=== PATIENT | male | born 1980 | race Caucasian/White ===

== ENCOUNTER 2017-10-11 09:00 | Outpatient (RCR) | payer BC, SELFPAY ==
--- NOTE | 2017-09-27 10:09 | [facility].PTOPWND ---
Rehab Outpt Wound Evaluation Rehab OP Wound Evaluation Start: 09/27/17 10:03 Freq: Status: Active Protocol: Document 09/27/17 10:03 KAREN (Rec: 09/27/17 10:08 KAREN [id number]) Electronically Signed By Alex Stauffer PT 09/27/17 10:03 Subjective/History History History Pt presents with c/o increasing irritation and random open sores of the right lower leg x 1-2 mos. Pt reports he has hx of CVI x 2-3 yrs with increasing edema in darrell LE. He currently reports no c/o pain or numbness in dar[place] LE and no significant PMH. 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 Stage of Lymphedema Lymphedema stages Stage I (Pitting edema, reduces w/ elevation, no fibrosis) Skin Changes Dry Skin Yes Taut, Shiny Skin Yes Wounds Yes Discoloration of Skin Yes Pain Scale Pain Scale (0-10) 0 Affected Extremities Areas Affected by Lymphedema/Edema Right Lower Extremity Left Lower Extremity Manual Lymphatic Drainage Treatment Area MLD Treatment Area Right Lower Extremity Left Lower Extremity Wound Problems/Impairments Impairments Problems/Impairmments Increased Edema Lymphedema Present Wound Care Needs Impaired Self Care/Self Management Prognosis Rehab Potential Good Clinical Impression Consistent with Diagnosis Yes Short Term Goals Number of Weeks 4 Patient to Understand Lymphedema Yes Treatment and Exercises Decrease Girth Measurments by (cm) Yes: by 5 cm Detention Attendant Goals Number of Weeks 8 Patient to be Ind w/ HEP Yes Patient to Adhere Lymphedema Precautions Yes Decrease Girth Measurments by (cm) Yes: by 15 cm Outpatient Therapy Plan of Care Treatment Plan May Include Therapeutic Exercise Including Home Yes Exercise Program Manual Therapy Techniques Yes Neuromuscular Re-education Yes Orthotics/Bracing/Splinting Yes Massage Yes Manual Lymphatic Drainage Yes Eval/Re-Eval Yes Frequency Times per week 2 Duration Number of Weeks 8 Addendums This patient is a candidate for social Yes or vocational rehab? Patient/Guardian verbally acknowledges
== END 2017-10-15 09:01 | disposition home or self-care (01) ==
LOC: PT 09:00
PROVIDERS: Family Provider Family Medicine; PCP Family Medicine; Visit Provider Family Medicine
DX: I89.0 Lymphedema, not elsewhere classified (principal)
CPT/HCPCS: 97140; 97162

== ENCOUNTER → 2019-04-28 13:39 | Outpatient (CLI) | payer BC, SELFPAY | PROVIDERS: PCP Nurse Practitioner Family; Visit Provider Nurse Practitioner Family | DX: R00.2 Palpitations (principal) | CPT/HCPCS: 93225; 93226 ==